=== PATIENT | male | born 1950 | race Hispanic/Latino ===

== ENCOUNTER → 2017-09-29 | Outpatient (CLI) | payer OTHER ==
[~2017-09-29] MED LIST: AMLO10TA2 PO; ASPI-1005 PO; CLOP75TA32 PO; LINA5TAB PO; METF10004 PO; METO-391 PO; MULT-1259 PO; NAPR220C15 PO; OMEP40CA37 PO; ROSU40 PO
== END | disposition home or self-care (01) ==
LOC: SHCH 10:45
PROVIDERS: ATTEND Internal Medicine Cardiovascular Disease
DX: I35.0 Nonrheumatic aortic (valve) stenosis (principal); Z95.1 Presence of aortocoronary bypass graft
CPT/HCPCS: 93306

== ENCOUNTER → 2017-12-24 | Outpatient (CLI) | payer OTHER | END | disposition home or self-care (01) | LOC: RAH 13:54 | PROVIDERS: ATTEND Internal Medicine | DX: M79.672 Pain in left foot (principal) | CPT/HCPCS: 73630 ==

== ENCOUNTER → 2018-01-09 | Outpatient (CLI) | payer OTHER | END | disposition home or self-care (01) | LOC: RAH 14:36 | PROVIDERS: ATTEND Internal Medicine | DX: M79.662 Pain in left lower leg (principal) | CPT/HCPCS: 93971 ==

== ENCOUNTER → 2018-03-27 | Outpatient (CLI) | payer OTHER ==
[~2018-03-27] VITALS: Ht 177.8 cm; Wt 95.3 kg
[~2018-03-27] MED LIST changes: -AMLO10TA2 PO; +AMLO10TA6 PO; +METF-446 PO; -METF10004 PO; +REGADENOSON 0.4 MG/5 ML PF SYG IVP SCH
== END | disposition home or self-care (01) ==
LOC: SHCH 08:22
PROVIDERS: ATTEND Internal Medicine Cardiovascular Disease
DX: I25.10 Atherosclerotic heart disease of native coronary artery without angina pectoris (principal); I51.7 Cardiomegaly; I12.9 Hypertensive chronic kidney disease with stage 1 through stage 4 chronic kidney disease, or unspecified chronic kidney disease; E11.22 Type 2 diabetes mellitus with diabetic chronic kidney disease; N18.3 Chronic kidney disease, stage 3 (moderate); I50.32 Chronic diastolic (congestive) heart failure; J44.9 Chronic obstructive pulmonary disease, unspecified; I25.2 Old myocardial infarction; K21.9 Gastro-esophageal reflux disease without esophagitis; E78.5 Hyperlipidemia, unspecified; Z87.891 Personal history of nicotine dependence
CPT/HCPCS: 78452; 93017; 93306; 96374; A9500 ×2; J2785

== ENCOUNTER → 2018-04-13 | Outpatient (CLI) | payer OTHER ==
[~2018-04-13] MED LIST changes: -REGADENOSON 0.4 MG/5 ML PF SYG IVP SCH
== END | disposition home or self-care (01) ==
LOC: RAH 10:31
PROVIDERS: ATTEND Internal Medicine
DX: R06.02 Shortness of breath (principal); I13.0 Hypertensive heart and chronic kidney disease with heart failure and stage 1 through stage 4 chronic kidney disease, or unspecified chronic kidney disease; E11.22 Type 2 diabetes mellitus with diabetic chronic kidney disease; N18.3 Chronic kidney disease, stage 3 (moderate); I50.32 Chronic diastolic (congestive) heart failure; E78.5 Hyperlipidemia, unspecified; J44.9 Chronic obstructive pulmonary disease, unspecified; I25.10 Atherosclerotic heart disease of native coronary artery without angina pectoris; K21.9 Gastro-esophageal reflux disease without esophagitis; Z87.891 Personal history of nicotine dependence
CPT/HCPCS: 71046

== ENCOUNTER → 2018-04-14 | Outpatient (CLI) | payer OTHER ==
[~2018-04-14] VITALS: Ht 177.8 cm; Wt 95.1 kg
[2018-04-14 09:04] VITALS: BP 176/83
[2018-04-14 09:11] LABS: LYMPHOCYTES % (AUTO) 29.4 % (21.0-51.0); MEAN CORPUSCULAR HEMOGLOBIN 27.5 pg (27.0-33.0); MEAN CORPUSCULAR HGB CONC 32.5 g/dL (32.0-36.0); MEAN CORPUSCULAR VOLUME 84.7 fL (79-99); MONOCYTES % (AUTO) 8.7 % (3.0-13.0); NEUTROPHILS % (AUTO) 57.9 % (40.0-77.0); NUCLEATED RED BLOOD CELLS 0.1 % (0.0-0.19); PLATELET COUNT (AUTO) 157 K/uL (130-400); RED BLOOD CELL COUNT(AUTO) 4.72 MIL/uL (4.50-6.20); RED CELL DISTRIBUTION WIDTH 13.3 % (11.0-15.5)
[2018-04-14 09:16] LABS: CREATININE 2.7 mg/dL (0.5-1.5); POTASSIUM 5.6 mmol/L (3.5-5.1)
[2018-04-14 09:19] LABS: APPEARANCE,URINE Clear (CLEAR); BILIRUBIN,URINE Negative (NEGATIVE); COLOR,URINE Yellow (YELLOW); GLUCOSE, URINE (UA) TRACE mg/dL (NEGATIVE); KETONES,URINE Negative (NEGATIVE); LEUKOCYTE ESTERASE ,URINE Negative (NEGATIVE); NITRATE,URINE Negative (NEGATIVE); OCCULT BLOOD,URINE Small (NEGATIVE); PH,URINE 5.5 (5.0-8.0); PROTEIN,URINE >=1000 (NEGATIVE)
[2018-04-14 09:47] LABS: BACTERIA,URINE Rare /HPF (None Seen); RBC,URINE 0-1 /HPF (0-1); SQUAMOUS EPITHELIAL CELL,UR Rare /HPF (0-2); WBC,URINE None Seen /HPF (0-1)
[2018-04-14 09:53] LABS: INR 0.9 (0.85-1.15); PARTIAL THROMBOPLASTIN TIME 28.2 SEC (26.3-35.5); PROTHROMBIN TIME 9.5 SEC (9.6-11.6)
== END ==
LOC: EDSTATUS 09:00 → DAH 10:00
PROVIDERS: ATTEND Internal Medicine Cardiovascular Disease
DX: R07.9 Chest pain, unspecified (principal); Z53.9 Procedure and treatment not carried out, unspecified reason; I21.3 ST elevation (STEMI) myocardial infarction of unspecified site
CPT/HCPCS: 36415; 71045; 80048; 81001; 85025; 85610; 85730; 93005

== ENCOUNTER → 2018-05-20 | Outpatient (CLI) | payer OTHER ==
[~2018-05-20] MED LIST changes: +ALBUTEROL SULFATE 0.083% 2.5 MG/3 ML INH IH ONE
== END | disposition home or self-care (01) ==
LOC: RESP 14:25
PROVIDERS: ATTEND Internal Medicine
DX: R06.09 Other forms of dyspnea (principal); R06.02 Shortness of breath
CPT/HCPCS: 94060; 94727; 94729

== ENCOUNTER → 2018-12-11 | Outpatient (CLI) | payer OTHER ==
[~2018-12-11] MED LIST changes: -ALBUTEROL SULFATE 0.083% 2.5 MG/3 ML INH IH ONE; -AMLO10TA6 PO; +AMLO10TA7 PO
== END | disposition home or self-care (01) ==
LOC: RAH 13:53
PROVIDERS: ATTEND Internal Medicine
DX: M54.5 Low back pain (principal)
CPT/HCPCS: 72100

== ENCOUNTER → 2019-01-28 | Outpatient (CLI) | payer OTHER | END | disposition home or self-care (01) | LOC: RAH 11:44 | PROVIDERS: ATTEND Internal Medicine | DX: M17.0 Bilateral primary osteoarthritis of knee (principal); M25.462 Effusion, left knee; M25.461 Effusion, right knee | CPT/HCPCS: 73562 ==

== ENCOUNTER 2019-02-06 20:51 | Inpatient (IN) | payer OTHER | END 2019-02-12 14:40 | disposition home or self-care (01) | LOC: EDH 20:51 → EDHIP 02-07 00:29 → 2CH 02-11 11:01 → 3AH 02-07 01:31 → 2DH 02-12 10:58 | DX: N17.0 Acute kidney failure with tubular necrosis (principal); G93.41 Metabolic encephalopathy; M62.82 Rhabdomyolysis; I50.32 Chronic diastolic (congestive) heart failure; I13.0 Hypertensive heart and chronic kidney disease with heart failure and stage 1 through stage 4 chronic kidney disease, or unspecified chronic kidney disease; G93.40 Encephalopathy, unspecified; N18.4 Chronic kidney disease, stage 4 (severe); I16.0 Hypertensive urgency; E11.22 Type 2 diabetes mellitus with diabetic chronic kidney disease; E11.65 Type 2 diabetes mellitus with hyperglycemia; E86.9 Volume depletion, unspecified; M54.5 Low back pain ==

== ENCOUNTER → 2019-12-24 | Outpatient (CLI) | payer OTHER ==
[~2019-12-24] MED LIST changes: +ALLO100T PO; -AMLO10TA7 PO; +AMLO5TAB9 PO; +ATOR40TA69 PO; +FURO40TA5 PO; +GABA-529 PO; +HYDR25 PO; -METF-446 PO; -NAPR220C15 PO; +OMEP40CA13 PO; -OMEP40CA37 PO; -ROSU40 PO; +TRAM50TA4 PO
== END | disposition home or self-care (01) ==
LOC: SHCH 10:45
PROVIDERS: ATTEND Internal Medicine Cardiovascular Disease
DX: I25.110 Atherosclerotic heart disease of native coronary artery with unstable angina pectoris (principal)
CPT/HCPCS: 93306

== ENCOUNTER 2020-06-22 10:18 | Emergency (ER) | payer OTHER ==
[~2020-06-22 10:18] MED LIST changes: +AMLO-257 PO; -AMLO5TAB9 PO
[2020-06-22 11:01] LABS: BASOPHILS % (AUTO) 0.5 % (0.0-5.0); EOSINOPHILS % (AUTO) 1.2 % (0.0-8.0); HEMATOCRIT 35.2 % (42-54); LYMPHOCYTES % (AUTO) 13.8 % (21.0-51.0); MEAN CORPUSCULAR HEMOGLOBIN 27.3 pg (27.0-33.0); MEAN CORPUSCULAR HGB CONC 32.7 g/dL (32.0-36.0); MEAN CORPUSCULAR VOLUME 83.6 fL (79-99); MONOCYTES % (AUTO) 5.7 % (3.0-13.0); NEUTROPHILS % (AUTO) 77.2 % (40.0-77.0); NUCLEATED RED BLOOD CELLS 0.2 % (0.0-0.19); PLATELET COUNT (AUTO) 192 K/uL (130-400); RED BLOOD CELL COUNT(AUTO) 4.21 MIL/uL (4.50-6.20); RED CELL DISTRIBUTION WIDTH 13.3 % (11.0-15.5); WHITE BLOOD COUNT (AUTO) 10.2 K/uL (4.8-10.8)
[2020-06-22 11:06] LABS: ALBUMIN 2.5 g/dL (3.5-5.0); BILIRUBIN,TOTAL 0.2 mg/dL (0.2-1.0); CREATININE 3.7 mg/dL (0.5-1.5); POTASSIUM 4.6 mmol/L (3.5-5.1); TOTAL PROTEIN, SERUM 7.1 g/dL (6.0-8.3)
[2020-06-22 12:07] LABS: INR 0.88 (0.85-1.15); PROTHROMBIN TIME 9.6 SEC (9.6-11.6)
[2020-06-22 13:05] LABS: RAPID GROUP A STREP NEGATIVE (NEGATIVE)
== END 2020-06-22 15:29 | disposition home or self-care (01) ==
LOC: EDH 10:18
DX: I95.1 Orthostatic hypotension (principal); R42 Dizziness and giddiness; E11.9 Type 2 diabetes mellitus without complications; E78.00 Pure hypercholesterolemia, unspecified; Z79.899 Other long term (current) drug therapy
CPT/HCPCS: 36415; 70450; 80053; 83605; 83880; 84484; 85025; 85610; 85730; 87040; 87804; 87880; 93005

== ENCOUNTER 2020-08-10 11:03 | Inpatient (IN) | payer OTHER ==
[~2020-08-10] VITALS: Ht 154.9 cm; Wt 97.8 kg
[~2020-08-10 11:03] MED LIST changes: -OMEP40CA13 PO; +OMEP40CA21 PO
[2020-08-10 11:28] LABS: ABG BASE EXCESS -7.1 mmol/L (-2.0-3.0); ABG HCO3 18.2 mmol/L (21.0-28.0); ABG OXYGEN SATURATION 91.9 % (95.0-99.0); ABG PCO2 36 mmHg (35-48)
[2020-08-10] MEDS ORDERED: ALBUTEROL INHALER 90MCG/INH IH ONE (11:36)
[2020-08-10 11:43] LABS: BASOPHILS % (AUTO) 0.9 % (0.0-5.0); EOSINOPHILS % (AUTO) 2.6 % (0.0-8.0); HEMATOCRIT 32.5 % (42-54); LYMPHOCYTES % (AUTO) 20.5 % (21.0-51.0); MEAN CORPUSCULAR HEMOGLOBIN 26.8 pg (27.0-33.0); MEAN CORPUSCULAR HGB CONC 31.7 g/dL (32.0-36.0); MEAN CORPUSCULAR VOLUME 84.6 fL (79-99); MONOCYTES % (AUTO) 9.6 % (3.0-13.0); PLATELET COUNT (AUTO) 184 K/uL (130-400); RED BLOOD CELL COUNT(AUTO) 3.84 MIL/uL (4.50-6.20); RED CELL DISTRIBUTION WIDTH 14.3 % (11.0-15.5)
[2020-08-10 11:56] LABS: CREATININE 2.9 mg/dL (0.5-1.5); POTASSIUM 5.1 mmol/L (3.5-5.1)
[2020-08-10 12:00] LABS: ALBUMIN 2.2 g/dL (3.5-5.0); BILIRUBIN,TOTAL 0.4 mg/dL (0.2-1.0); TOTAL PROTEIN, SERUM 6.5 g/dL (6.0-8.3)
[2020-08-10 12:19] LABS: B-TYPE NATRIURETIC PEPTIDE 771 pg/mL (0-100)
[2020-08-10] MEDS ORDERED: AZITHROMYCIN 500MG+NS 250ML 250 ML IV ONE (12:41)
[2020-08-10] MEDS ORDERED: DEXAMETHASONE SOD PHOSPHATE 10MG/ML 1ML VIAL ONE (12:41)
[2020-08-10] MEDS ORDERED: CEFTRIAXONE 1G VIAL ONE (12:42)
[2020-08-10] MEDS ORDERED: ONDANSETRON 4MG INJ IV PRN (15:00)
[2020-08-10] MEDS ORDERED: NITROGLYCERIN 0.4 MG SL TAB SL PRN (15:00)
[2020-08-10] MEDS ORDERED: DiphenhydrAMINE HCL 50 MG/ML VIAL IV PRN (15:00)
[2020-08-10] MEDS ORDERED: LACTULOSE 20 GM/30 ML UDCUP PO PRN (15:00)
[2020-08-10] MEDS ORDERED: DIPHENHYDRAMINE HCL 25 MG CAPSULE PO PRN (15:00)
[2020-08-10] MEDS ORDERED: GUAIFENESIN-DM 200/20 MG 10 ML PO PRN (15:00)
[2020-08-10] MEDS ORDERED: ACETAMINOPHEN 325 MG TAB PO PRN ×2 (15:00)
[2020-08-10] MEDS ORDERED: POTASSIUM CHLORIDE 10% ELIXIR 20 MEQ/15 ML UDCUP PO PRN (15:15)
[2020-08-10] MEDS ORDERED: POTASSIUM CHLORIDE 20MEQ/100ML 100 ML IV PRN ×2 (15:15)
[2020-08-10] MEDS ORDERED: KCL 20 MEQ ERTAB PO PRN (15:15)
[2020-08-10] MEDS ORDERED: FUROSEMIDE 20MG VIAL ONE (15:47)
[2020-08-10] MEDS ORDERED: FAMOTIDINE 20MG VIAL IV ONE (20:56)
[2020-08-10] MEDS: FUROSEMIDE 20MG VIAL IV SCH (23:15)
[2020-08-11] MEDS ORDERED: FUROSEMIDE 20MG VIAL ONE (00:09)
[2020-08-11] MEDS ORDERED: MAGNESIUM OXIDE 400 MG TABLET PO ONE (00:09)
[2020-08-11] MEDS: IPRATROPIUM/ALBUTEROL SULFATE 3 ML SOLUTION IH SCH (01:41)
[2020-08-11 04:00] VITALS: BP 179/88
[2020-08-11] MEDS ORDERED: NITR0.4T50 SL (05:17)
[2020-08-11] MEDS ORDERED: ISOS60TA77 PO (05:17)
[2020-08-11] MEDS ORDERED: RANO500T2 PO (05:17)
[2020-08-11] MEDS ORDERED: MECL-160 PO (05:17)
[2020-08-11 06:43] LABS: BASOPHILS % (AUTO) 0.3 % (0.0-5.0); HEMATOCRIT 33.7 % (42-54); LYMPHOCYTES % (AUTO) 17.7 % (21.0-51.0); MEAN CORPUSCULAR HEMOGLOBIN 26.1 pg (27.0-33.0); MEAN CORPUSCULAR HGB CONC 30.6 g/dL (32.0-36.0); MEAN CORPUSCULAR VOLUME 85.3 fL (79-99); MONOCYTES % (AUTO) 8.3 % (3.0-13.0); NEUTROPHILS % (AUTO) 72.9 % (40.0-77.0); NUCLEATED RED BLOOD CELLS 0.3 % (0.0-0.19); PLATELET COUNT (AUTO) 218 K/uL (130-400); RED BLOOD CELL COUNT(AUTO) 3.95 MIL/uL (4.50-6.20); RED CELL DISTRIBUTION WIDTH 13.9 % (11.0-15.5); WHITE BLOOD COUNT (AUTO) 6.3 K/uL (4.8-10.8)
[2020-08-11 07:00] LABS: HEMOGLOBIN A1C 12.1 % (4.0-6.0)
[2020-08-11 07:01] LABS: ALBUMIN 2.2 g/dL (3.5-5.0); BILIRUBIN,TOTAL 0.2 mg/dL (0.2-1.0); CREATININE 3.3 mg/dL (0.5-1.5); PHOSPHORUS 4.2 mg/dL (2.5-4.9); TOTAL PROTEIN, SERUM 6.6 g/dL (6.0-8.3)
[2020-08-11] MEDS: FUROSEMIDE 20MG VIAL IV SCH ×4 (07:15→23:11)
[2020-08-11 07:20] LABS: POTASSIUM 6.5 mmol/L (3.5-5.1)
[2020-08-11 08:00] VITALS: BP 184/97
[2020-08-11] MEDS ORDERED: CALCIUM GLUC 1GM 1 GM in 0.9%NACL 100ML 100 ML IV SCH (08:15)
[2020-08-11] MEDS ORDERED: CALCIUM GLUC 1GM/10ML VIAL IV SCH (08:15)
[2020-08-11] MEDS ORDERED: KAYEXALATE 15GM/60ML PO SCH (08:15)
[2020-08-11] MEDS: ENOXAPARIN SODIUM 40 MG/0.4 ML SYRINGE SQ SCH (08:47)
[2020-08-11] MEDS: FAMOTIDINE 20MG VIAL IV SCH (08:47)
[2020-08-11] MEDS: MAGNESIUM OXIDE 400 MG TABLET PO SCH ×3 (08:48→21:01)
[2020-08-11] MEDS: METOPROLOL SUCCINATE 50 MG TAB.SR.24H PO SCH (08:57)
[2020-08-11] MEDS: RANOLAZINE 500 MG TAB.SR.12H PO SCH ×2 (08:57→21:01)
[2020-08-11] MEDS: AMLODIPINE 5 MG TAB PO SCH ×2 (08:57→21:01)
[2020-08-11] MEDS: ISOSORBIDE MONO 60MG SR TAB PO SCH (08:57)
[2020-08-11] MEDS: ASPIRIN 81MG CHEW TAB PO SCH (08:57)
[2020-08-11] MEDS: HYDRALAZINE 25MG TABLET PO SCH ×3 (08:58→21:01)
[2020-08-11] MEDS ORDERED: SOLU-MEDROL 125MG VIAL IV SCH (09:00)
[2020-08-11] MEDS: INSULIN HUMULIN R 100 UNIT/ML 3ML SQ SCH ×4 (09:15→21:12)
[2020-08-11] MEDS ORDERED: INSULIN GLARGINE 100 UNITS/ML 10 ML VIAL SQ SCH (09:30)
[2020-08-11] MEDS ORDERED: CEFTRIAXONE 1G VIAL IVP SCH (10:00)
[2020-08-11 12:00] VITALS: BP 187/93
[2020-08-11] MEDS ORDERED: AMLODIPINE 5 MG TAB PO SCH (14:45)
[2020-08-11] MEDS ORDERED: LABETALOL 20MG SYG IV PRN (15:00)
[2020-08-11 16:00] VITALS: BP 141/76
[2020-08-11 16:39] LABS: APPEARANCE,URINE Cloudy (CLEAR); BILIRUBIN,URINE Negative (NEGATIVE); COLOR,URINE Yellow (YELLOW); GLUCOSE, URINE (UA) 500 mg/dL (NEGATIVE); KETONES,URINE Negative (NEGATIVE); LEUKOCYTE ESTERASE ,URINE Negative (NEGATIVE); NITRATE,URINE Negative (NEGATIVE); OCCULT BLOOD,URINE Negative (NEGATIVE); PROTEIN,URINE >=1000 mg/dL (NEGATIVE); UROBILINOGEN,URINE 0.2 mg/dL (0.2-1.0)
[2020-08-11 16:43] LABS: CHLORIDE,URINE RANDOM 85 mmol/L (110-250); CREATININE,URINE RANDOM 93 mg/dL (30-135); POTASSIUM,URINE RANDOM 39 mmol/L (25-125); SODIUM,URINE RANDOM 61 mmol/l (40-220)
[2020-08-11 17:07] LABS: AMORPHOUS SEDIMENT,UR Moderate /LPF (None Seen); BACTERIA,URINE Rare /HPF (None Seen); RBC,URINE 0-1 /HPF (0-1); SQUAMOUS EPITHELIAL CELL,UR 0-2 /HPF (0-2); WBC,URINE 0-1 /HPF (0-1)
[2020-08-11 20:00] VITALS: BP 124/68
[2020-08-11] MEDS ORDERED: DOXYCYCLINE HYCLATE 100 MG TABLET PO SCH (21:00)
[2020-08-11] MEDS: SOLU-MEDROL 40MG VIAL IVP SCH (21:01)
[2020-08-11] MEDS: ATORVASTATIN 40 MG TABLET PO SCH (21:01)
[2020-08-11 23:34] VITALS: BP 142/74
[2020-08-12] MEDS: IPRATROPIUM/ALBUTEROL SULFATE 3 ML SOLUTION IH SCH ×7 (02:29→21:30)
[2020-08-12 03:59] LABS: EOSINOPHILS % (AUTO) 1.8 % (0.0-8.0); HEMATOCRIT 35.9 % (42-54); LYMPHOCYTES % (AUTO) 11.9 % (21.0-51.0); MEAN CORPUSCULAR HEMOGLOBIN 26.4 pg (27.0-33.0); MEAN CORPUSCULAR HGB CONC 30.6 g/dL (32.0-36.0); MEAN CORPUSCULAR VOLUME 86.3 fL (79-99); MONOCYTES % (AUTO) 2.3 % (3.0-13.0); NEUTROPHILS % (AUTO) 83.6 % (40.0-77.0); NUCLEATED RED BLOOD CELLS 0.4 % (0.0-0.19); PLATELET COUNT (AUTO) 281 K/uL (130-400); RED BLOOD CELL COUNT(AUTO) 4.16 MIL/uL (4.50-6.20)
[2020-08-12 04:00] VITALS: BP 141/73
[2020-08-12 04:18] LABS: B-TYPE NATRIURETIC PEPTIDE 766 pg/mL (0-100)
[2020-08-12 04:29] LABS: ALBUMIN 2.7 g/dL (3.5-5.0); BILIRUBIN,TOTAL 0.1 mg/dL (0.2-1.0); CREATININE 4.7 mg/dL (0.5-1.5); MAGNESIUM 2.5 mg/dL (1.80-2.40); PHOSPHORUS 5.7 mg/dL (2.5-4.9); THYROID STIMULATING HORMONE 0.24 uIU/mL (0.36-3.74); TOTAL PROTEIN, SERUM 7.5 g/dL (6.0-8.3); URIC ACID 9.6 mg/dL (2.6-7.2)
[2020-08-12] MEDS: FUROSEMIDE 20MG VIAL IV SCH (06:01)
[2020-08-12] MEDS: INSULIN HUMULIN R 100 UNIT/ML 3ML SQ SCH ×4 (06:02→23:11)
[2020-08-12 07:59] VITALS: BP 141/63
[2020-08-12] MEDS: RANOLAZINE 500 MG TAB.SR.12H PO SCH ×2 (08:08→23:05)
[2020-08-12] MEDS: ASPIRIN 81MG CHEW TAB PO SCH (08:08)
[2020-08-12] MEDS: MAGNESIUM OXIDE 400 MG TABLET PO SCH ×2 (08:09→23:05)
[2020-08-12] MEDS: FAMOTIDINE 20MG VIAL IV SCH (08:09)
[2020-08-12] MEDS: ENOXAPARIN SODIUM 40 MG/0.4 ML SYRINGE SQ SCH (08:09)
[2020-08-12] MEDS: AMLODIPINE 5 MG TAB PO SCH ×2 (08:09→23:07)
[2020-08-12] MEDS: ISOSORBIDE MONO 60MG SR TAB PO SCH (08:09)
[2020-08-12] MEDS: METOPROLOL SUCCINATE 50 MG TAB.SR.24H PO SCH (08:09)
[2020-08-12] MEDS: HYDRALAZINE 25MG TABLET PO SCH ×3 (08:11→23:43)
[2020-08-12] MEDS: SOLU-MEDROL 40MG VIAL IVP SCH ×2 (08:12→23:07)
[2020-08-12 12:15] VITALS: BP 144/74
[2020-08-12 16:45] VITALS: BP 139/69
[2020-08-12] MEDS: FUROSEMIDE 40MG VIAL IV SCH (17:33)
[2020-08-12 21:17] VITALS: BP 124/58
[2020-08-12] MEDS: ATORVASTATIN 40 MG TABLET PO SCH (23:07)
[2020-08-13 00:33] VITALS: BP 148/82
[2020-08-13] MEDS: IPRATROPIUM/ALBUTEROL SULFATE 3 ML SOLUTION IH SCH ×3 (02:01→10:22)
[2020-08-13 04:14] LABS: BASOPHILS % (AUTO) 0.1 % (0.0-5.0); HEMATOCRIT 31.3 % (42-54); LYMPHOCYTES % (AUTO) 5.1 % (21.0-51.0); MEAN CORPUSCULAR HEMOGLOBIN 26.1 pg (27.0-33.0); MEAN CORPUSCULAR VOLUME 84.1 fL (79-99); NEUTROPHILS % (AUTO) 91.3 % (40.0-77.0); PLATELET COUNT (AUTO) 221 K/uL (130-400); RED BLOOD CELL COUNT(AUTO) 3.72 MIL/uL (4.50-6.20); RED CELL DISTRIBUTION WIDTH 14.1 % (11.0-15.5); WHITE BLOOD COUNT (AUTO) 11.2 K/uL (4.8-10.8)
[2020-08-13 04:29] LABS: ALBUMIN 2.5 g/dL (3.5-5.0); BILIRUBIN,TOTAL 0.2 mg/dL (0.2-1.0); CREATININE 5.2 mg/dL (0.5-1.5); POTASSIUM 5.3 mmol/L (3.5-5.1); TOTAL PROTEIN, SERUM 6.5 g/dL (6.0-8.3)
[2020-08-13 04:31] VITALS: BP 146/78
[2020-08-13] MEDS: FUROSEMIDE 40MG VIAL IV SCH ×2 (06:06→16:01)
[2020-08-13] MEDS: INSULIN HUMULIN R 100 UNIT/ML 3ML SQ SCH ×5 (06:10→21:04)
[2020-08-13 07:20] VITALS: BP 144/73
[2020-08-13] MEDS: MAGNESIUM OXIDE 400 MG TABLET PO SCH ×3 (08:17→20:42)
[2020-08-13] MEDS: METOPROLOL SUCCINATE 50 MG TAB.SR.24H PO SCH (08:18)
[2020-08-13] MEDS: ASPIRIN 81MG CHEW TAB PO SCH (08:18)
[2020-08-13] MEDS: ISOSORBIDE MONO 60MG SR TAB PO SCH (08:18)
[2020-08-13] MEDS: RANOLAZINE 500 MG TAB.SR.12H PO SCH ×2 (08:18→20:42)
[2020-08-13] MEDS: AMLODIPINE 5 MG TAB PO SCH (08:18)
[2020-08-13] MEDS: HYDRALAZINE 25MG TABLET PO SCH ×3 (08:18→20:43)
[2020-08-13] MEDS: FAMOTIDINE 20MG VIAL IV SCH (08:19)
[2020-08-13] MEDS: SOLU-MEDROL 40MG VIAL IVP SCH (08:19)
[2020-08-13] MEDS: ENOXAPARIN SODIUM 40 MG/0.4 ML SYRINGE SQ SCH (08:19)
[2020-08-13] MEDS ORDERED: ALBUTEROL 0.083% 2.5 MG/3 ML INH IH SCH (08:45)
[2020-08-13] MEDS ORDERED: CACL 1GM SYG IVP SCH (08:45)
[2020-08-13 09:49] LABS: APPEARANCE,URINE Clear (CLEAR); BILIRUBIN,URINE Negative (NEGATIVE); COLOR,URINE Yellow (YELLOW); GLUCOSE, URINE (UA) 500 mg/dL (NEGATIVE); KETONES,URINE Negative (NEGATIVE); LEUKOCYTE ESTERASE ,URINE Trace (NEGATIVE); NITRATE,URINE Negative (NEGATIVE); OCCULT BLOOD,URINE Negative (NEGATIVE); PROTEIN,URINE 300 mg/dL (NEGATIVE); UROBILINOGEN,URINE 0.2 mg/dL (0.2-1.0)
[2020-08-13 09:54] LABS: CREATININE,URINE RANDOM 61 mg/dL (30-135)
[2020-08-13 10:07] LABS: RBC,URINE None Seen /HPF (0-1); YEAST,URINE BUDDING Moderate /HPF (None Seen)
[2020-08-13 10:08] LABS: BACTERIA,URINE Rare /HPF (None Seen); SQUAMOUS EPITHELIAL CELL,UR 0-2 /HPF (0-2)
[2020-08-13 10:22] LABS: PROTEIN,URINE RANDOM 318.6 mg/dL (0-11.9)
[2020-08-13 11:36] VITALS: BP 135/88
[2020-08-13] MEDS ORDERED: IPRATROPIUM/ALBUTEROL SULFATE 3 ML SOLUTION IH PRN (12:00)
[2020-08-13 16:03] VITALS: BP 143/65
[2020-08-13 20:00] VITALS: BP 133/69
[2020-08-13] MEDS: ATORVASTATIN 40 MG TABLET PO SCH (20:42)
[2020-08-14] MEDS: AMLODIPINE 5 MG TAB PO SCH ×3 (00:58→21:50)
[2020-08-14 01:11] VITALS: BP 143/74
[2020-08-14 04:01] LABS: BASOPHILS % (AUTO) 0.1 % (0.0-5.0); HEMATOCRIT 30.6 % (42-54); LYMPHOCYTES % (AUTO) 6.9 % (21.0-51.0); MEAN CORPUSCULAR HEMOGLOBIN 26.8 pg (27.0-33.0); MEAN CORPUSCULAR HGB CONC 31.4 g/dL (32.0-36.0); MEAN CORPUSCULAR VOLUME 85.5 fL (79-99); MONOCYTES % (AUTO) 8.1 % (3.0-13.0); NEUTROPHILS % (AUTO) 84.3 % (40.0-77.0); NUCLEATED RED BLOOD CELLS 0.6 % (0.0-0.19); PLATELET COUNT (AUTO) 199 K/uL (130-400); RED BLOOD CELL COUNT(AUTO) 3.58 MIL/uL (4.50-6.20); RED CELL DISTRIBUTION WIDTH 14.5 % (11.0-15.5); WHITE BLOOD COUNT (AUTO) 10.8 K/uL (4.8-10.8)
[2020-08-14 04:46] LABS: ALBUMIN 2.5 g/dL (3.5-5.0); BILIRUBIN,TOTAL 0.2 mg/dL (0.2-1.0); CREATININE 5.4 mg/dL (0.5-1.5); POTASSIUM 5.4 mmol/L (3.5-5.1); TOTAL PROTEIN, SERUM 6.6 g/dL (6.0-8.3)
[2020-08-14 05:00] VITALS: BP 157/85
[2020-08-14] MEDS: INSULIN HUMULIN R 100 UNIT/ML 3ML SQ SCH ×5 (07:44→21:52)
[2020-08-14] MEDS: FAMOTIDINE 20MG VIAL IV SCH (08:30)
[2020-08-14] MEDS: METOPROLOL SUCCINATE 50 MG TAB.SR.24H PO SCH (08:31)
[2020-08-14] MEDS: HYDRALAZINE 25MG TABLET PO SCH ×3 (08:31→21:50)
[2020-08-14] MEDS: ASPIRIN 81MG CHEW TAB PO SCH (08:31)
[2020-08-14] MEDS: RANOLAZINE 500 MG TAB.SR.12H PO SCH ×2 (08:32→21:50)
[2020-08-14] MEDS: SOLU-MEDROL 40MG VIAL IVP SCH (08:32)
[2020-08-14] MEDS: MAGNESIUM OXIDE 400 MG TABLET PO SCH ×2 (08:32→21:50)
[2020-08-14] MEDS: ISOSORBIDE MONO 60MG SR TAB PO SCH (08:32)
[2020-08-14] MEDS: ENOXAPARIN SODIUM 40 MG/0.4 ML SYRINGE SQ SCH (08:33)
[2020-08-14 08:46] VITALS: BP 140/64
[2020-08-14] MEDS ORDERED: FUROSEMIDE 40MG VIAL IV SCH (09:00)
[2020-08-14] MEDS ORDERED: RENAL DOSE IV SCH (10:15)
[2020-08-14] MEDS ORDERED: COMPOUND IV REFRIGERATED 1 EACH IVSOLN MISC PRN (10:15)
[2020-08-14] MEDS ORDERED: VANCOMYCIN PROTOCOL PER PHARMACY IV SCH (10:15)
[2020-08-14] MEDS ORDERED: VANCOMYCIN 1G 1.25 GM in 0.9% NACL 250ML 250 ML IV SCH (10:30)
[2020-08-14] MEDS ORDERED: EPOETIN ALFA-EPBX (ESRD) 10,000 UNIT/ML VIAL SQ SCH (13:15)
[2020-08-14 13:35] VITALS: BP 132/63
[2020-08-14] MEDS ORDERED: COMPOUND IV MISC 1 EACH IVSOLN MISC PRN (13:45)
[2020-08-14 17:05] VITALS: BP 137/73
[2020-08-14 20:00] VITALS: BP 134/76
[2020-08-14] MEDS: ATORVASTATIN 40 MG TABLET PO SCH (21:50)
[2020-08-15] VITALS: BP 138/63
[2020-08-15 03:59] LABS: BASOPHILS % (AUTO) 0.1 % (0.0-5.0); HEMATOCRIT 34.8 % (42-54); LYMPHOCYTES % (AUTO) 8.5 % (21.0-51.0); MEAN CORPUSCULAR HEMOGLOBIN 26.3 pg (27.0-33.0); MEAN CORPUSCULAR HGB CONC 31.3 g/dL (32.0-36.0); MEAN CORPUSCULAR VOLUME 83.9 fL (79-99); MONOCYTES % (AUTO) 7.3 % (3.0-13.0); NUCLEATED RED BLOOD CELLS 0.5 % (0.0-0.19); PLATELET COUNT (AUTO) 205 K/uL (130-400); RED BLOOD CELL COUNT(AUTO) 4.15 MIL/uL (4.50-6.20); RED CELL DISTRIBUTION WIDTH 14.5 % (11.0-15.5); WHITE BLOOD COUNT (AUTO) 13.1 K/uL (4.8-10.8)
[2020-08-15 04:00] VITALS: BP 148/80
[2020-08-15 04:21] LABS: ALBUMIN 2.7 g/dL (3.5-5.0); BILIRUBIN,TOTAL 0.3 mg/dL (0.2-1.0); CREATININE 5.3 mg/dL (0.5-1.5); POTASSIUM 5.3 mmol/L (3.5-5.1); TOTAL PROTEIN, SERUM 6.8 g/dL (6.0-8.3)
[2020-08-15] MEDS: INSULIN HUMULIN R 100 UNIT/ML 3ML SQ SCH ×3 (06:09→11:41)
[2020-08-15 07:54] VITALS: BP 144/78
[2020-08-15] MEDS: METOPROLOL SUCCINATE 50 MG TAB.SR.24H PO SCH (08:51)
[2020-08-15] MEDS: RANOLAZINE 500 MG TAB.SR.12H PO SCH (08:51)
[2020-08-15] MEDS: MAGNESIUM OXIDE 400 MG TABLET PO SCH (08:51)
[2020-08-15] MEDS: ISOSORBIDE MONO 60MG SR TAB PO SCH (08:52)
[2020-08-15] MEDS: FAMOTIDINE 20MG VIAL IV SCH (08:52)
[2020-08-15] MEDS: AMLODIPINE 5 MG TAB PO SCH (08:52)
[2020-08-15] MEDS: ASPIRIN 81MG CHEW TAB PO SCH (08:52)
[2020-08-15] MEDS: HYDRALAZINE 25MG TABLET PO SCH (08:52)
[2020-08-15] MEDS ORDERED: ENOXAPARIN SODIUM 30 MG/0.3 ML SQ SCH (09:00)
[2020-08-15] MEDS ORDERED: IRON SUCROSE COMPLEX 100 MG in 0.9%NACL 50ML 50 ML IV SCH (09:00)
[2020-08-15] MEDS: SOLU-MEDROL 40MG VIAL IVP SCH (09:06)
[2020-08-15] MEDS ORDERED: KAYEXALATE 15GM/60ML PO SCH (09:15)
[2020-08-15] MEDS ORDERED: KAYEXALATE 15GM/60ML ONE (09:17)
[2020-08-15] MEDS ORDERED: PRED20TA3 PO (09:43)
[2020-08-15 12:00] VITALS: BP 165/90
[2021-02-27] MEDS ORDERED: SPIR25TA6 PO (13:07)
[2021-02-27] MEDS ORDERED: METO-409 PO (13:07)
[2021-02-27] MEDS ORDERED: AMLO-258 PO (13:08)
[2021-02-27] MEDS ORDERED: INSU100I24 SQ (13:08)
[2021-02-27] MEDS ORDERED: FURO40TA5 PO (13:08)
[2021-02-27] MEDS ORDERED: PREG50CA63 PO (13:08)
[2021-02-27] MEDS ORDERED: ATOR40TA71 PO (13:08)
[2021-02-27] MEDS ORDERED: HYDR50TA36 PO (13:08)
[2021-03-06] MEDS ORDERED: LISI40TA9 PO (16:45)
[2021-03-06] MEDS ORDERED: METO50 PO (16:45)
== END 2020-08-15 16:00 | disposition home or self-care (01) | DRG 291 ==
LOC: EDH 11:03 → EDHIP 14:58 → 2AH 08-11 03:05 → 4DH 08-11 18:29
PROVIDERS: ADMIT Family Medicine; ATTEND Family Medicine
DX: I13.0 Hypertensive heart and chronic kidney disease with heart failure and stage 1 through stage 4 chronic kidney disease, or unspecified chronic kidney disease (principal); J96.01 Acute respiratory failure with hypoxia; I50.33 Acute on chronic diastolic (congestive) heart failure; N17.9 Acute kidney failure, unspecified; J44.1 Chronic obstructive pulmonary disease with (acute) exacerbation; Z68.41 Body mass index [BMI] 40.0-44.9, adult; E87.2 Acidosis; I42.9 Cardiomyopathy, unspecified; N18.9 Chronic kidney disease, unspecified; E87.5 Hyperkalemia; Z20.822 Contact with and (suspected) exposure to COVID-19; D64.9 Anemia, unspecified; E78.00 Pure hypercholesterolemia, unspecified; E11.22 Type 2 diabetes mellitus with diabetic chronic kidney disease; E11.65 Type 2 diabetes mellitus with hyperglycemia; E78.5 Hyperlipidemia, unspecified; E66.9 Obesity, unspecified; I25.10 Atherosclerotic heart disease of native coronary artery without angina pectoris; Z83.3 Family history of diabetes mellitus; Z82.5 Family history of asthma and other chronic lower respiratory diseases; Z87.891 Personal history of nicotine dependence; Z82.49 Family history of ischemic heart disease and other diseases of the circulatory system; Z95.1 Presence of aortocoronary bypass graft; Z91.11 Patient's noncompliance with dietary regimen; Z95.3 Presence of xenogenic heart valve; Z95.5 Presence of coronary angioplasty implant and graft
CPT/HCPCS: 36415; 36600; 71045; 76770; 80053; 80061; 81001; 82306; 82436; 82570; 82728; 82803; 82948; 83036; 83540; 83550; 83605; 83735; 83880; 83935; 83970; 84100; 84132; 84133; 84145; 84156; 84300; 84443; 84484; 84550; 85025; 87040; 87077; 87186; 87426; 93005; 93306; 93356; 94640; 94664; 99291; G0378; J0456; J0610; J0696; J1100; J1650; J1756; J1815; J1940; J2920; J2930; J3370; J3490; J7050; U0003

== ENCOUNTER → 2021-02-10 | Outpatient (CLI) | payer OTHER ==
[~2021-02-10] MED LIST changes: -FURO40TA5 PO; +ISOS60TA77 PO; +MECL-160 PO; +NITR0.4T50 SL; +PRED20TA3 PO; +RANO500T2 PO
== END | disposition home or self-care (01) ==
LOC: SHCH 08:36
PROVIDERS: ATTEND Internal Medicine Cardiovascular Disease
DX: R06.09 Other forms of dyspnea (principal); Z95.2 Presence of prosthetic heart valve
CPT/HCPCS: 93306